=== PATIENT | male | born 1995 | race Caucasian/White ===

== ENCOUNTER → 2024-10-19 09:26 | Outpatient (CLI) | payer OTHER, SELFPAY ==
--- NOTE | ~2024-10-19 | XR_ITS ---
EXAMINATION: XR chest 2V DATE: 10/19/2024 09:54 INDICATION: Tobacco use. TECHNIQUE: Frontal and lateral views of the chest were obtained on 3 radiographs. COMPARISON: Chest 2 views 05/11/2010 FINDINGS: There is no pneumonia, pleural effusion, or pneumothorax. The heart size is normal. IMPRESSION: 1. No acute cardiopulmonary disease. Reviewed, dictated and finalized at location B. IE PADDER
== END ==
LOC: EXPCRAD 09:33
PROVIDERS: PCP Emergency Medicine; Visit Provider Emergency Medicine
DX: Z72.0 Tobacco use (principal)
CPT/HCPCS: 71046

== ENCOUNTER 2025-03-28 15:53 | Emergency (ER) | payer OTHER, SELFPAY ==
--- NOTE | ~2025-03-28 | US_ITS ---
TESTICULAR ULTRASOUND (Doppler ultrasound interrogation techniques used as needed for this exam.) Ordering provider: Xiomara Calderon APRN History: . groin pain . Comparison: None. FINDINGS: TESTICLES: Normal in size. The right measures 4.5x 2.3x 3.1 cm and the left measures 3.9x 2.2x 3.6 cm . Normal echogenicity bilaterally without mass lesion. Normal Doppler flow bilaterally. EPIDIDYMIDES: Normal in size. . Normal echogenicity bilaterally. Both demonstrate normal Doppler flow . HYDROCELE: None. VARICOCELE: None. OTHER ABNORMALITY: None seen. IMPRESSION: normal testicular ultrasound. Reviewed, dictated and finalized at location A.
--- NOTE | ~2025-03-28 | CT_ITS ---
EXAMINATION: CT abdomen pelvis w con DATE: 03/28/2025 17:33 INDICATION: RLQ pain TECHNIQUE: Computed tomography (CT) of the abdomen and pelvis was performed with 100 mL Omnipaque-350 intravenous contrast. Automated exposure control and iterative reconstruction technique were employe d. The dose-length product was 458.39 mGy-cm. COMPARISON: None. FINDINGS: Lower thorax: Unremarkable Liver: Normal. Biliary/Gallbladder: Gallbladder is normal. No bile duct dilation. Pancreas: No mass or duct dilation. Spleen: Normal. Adrenals:No mass. Kidneys: Left upper pole scar. 4 mm left upper pole calcification. Left kidney otherwise normal. Kelsi yed right nephrogram. Mild right hydronephrosis. No suspicious renal masses. Right upper pole hypoden sity, too small to characterize but most likely represents a cyst. GI tract: No small or large bowel dilation. Colonic submucosal fat as can be seen with chronic IBD, o besity, chemotherapy treatment, and celiac disease. Normal appendix. Mesentery/Peritoneum: No ascites, mass, or free air. Retroperitoneum: No mass. Pelvis: 3 mm calcification in the right UVJ. Empty urinary bladder. Intramural bladder wall fat. Soft Tissues: Soft tissues and body wall unremarkable. Bones: No acute osseous finding. IMPRESSION: 3 mm right UVJ calcification causing mild obstructive uropathy Reviewed, dictated and finalized at location K.
--- OUTSIDE RECORDS SUMMARY | 2025-03-28 15:55 | XMS_ITS | Clinical Summary ---
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 Pulse 76 08/07/2012 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 Temperature - - Respiratory Rate - - Oxygen Saturation - - Inhaled Oxygen Concentration - - Weight 66.1 kg (145 lb 12.8 oz) 08/07/2012 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 Height 180.3 cm (5' 11) 08/07/2012 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 Body Mass Index 20.33 08/07/2012 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 Plan of Treatment Health Maintenance Due Date Last Done Comments Annual Physical 1996 Hepatitis C 2011 DTaP, Tdap and Td Vaccines ( 1 - Tdap) 2012 Hepatitis B Vaccines (1 of 3 - 19+ 3-dose series) 2012 COVID-19 Vaccine (2023-2 5 season) 2024 HPV Vaccines Aged Out No longer eligi ble based on patient's age to complete this topic Meningococcal B Vaccine Aged Out No l onger eligible based on patient's age to complete this topic Meningococcal Vaccine Aged Out No shemar saida eligible based on patient's age to complete this topic Pneumococcal Vaccine: Pediat rics (0 to 5 Years) and At-Risk Patients (6 to 49 Years) Aged Out No longer eligible b ased on patient's age to complete this topic RSV Immunizations Under 20 Months Aged Out No longer eligible based on patient's age to complete this topic
--- NOTE | 2025-03-28 16:05 | ECG_ITS ---
Test Date: 2025-03-28 16:58:08 Measurements Intervals [place] Rate: 54 P: 39 NE: 171 QRS: 72 QRSD: 106 T: 58 QT: 421 QTc: 401 Interpretive Statements SINUS BRADYCARDIA ST ELEVATION IN DIFFUSE LEADS- PROBABLY EARLY REPOLARIZATION PEAKED T WAVES- CONSIDER HYPERKALEMIA ABNORMAL ECG No previous ECG available for comparison Electronically Signed On 03-28-2025 20:27:34 CDT by Alex Stein D.O.
--- NOTE | 2025-03-28 16:07 | ED_ITS ---
HPI - Male Genitourinary General Chief complaint: Urogenital-Male Stated complaint: Severe genital pain Time Seen by Provider: 03/28/25 16:00 Focused HPI: Patient is a 29-year-old male who presents to the ER with complaints of severe abdominal pain started about 2 hours ago. He reports ?it feels like my penis hurts. Patient denies any recent fevers, urinary burning or urgency, or back pain. He endorses a history of schizophrenia for which he is well-medicated, per his mother. Patient does endorse difficulty peeing. He denies any new sexual partners or concerns for STDs. GENERAL: Ill-appearing, well-nourished, and in acute distress. Diaphoretic. HEAD: Normocephalic, atraumatic. CHEST: Clear to auscultation. ?No respiratory distress. HEART: Regular rate and rhythm.? NEURO: ?Alert and oriented x3. Patient screened in triage and initial orders placed.? ?Additional care and disposition to be based upon?diagnostic testing and treatment. Related Data Allergies Allergy/AdvReac Type Severity Reaction Status Date / Time No Known Allergies Allergy Verified 11/26/16 23:43 Review of Systems 2 Review of Systems: All systems reviewed & are unremarkable except as noted in HPI and below Exam 2 Narrative: GENERAL: Ill appearing, well-nourished, toxic, in acute distress, diaphoretic HEAD: Normocephalic, atraumatic. NECK: Supple. No adenopathy, no masses. RESPIRATORY: Airway patent, respirations nonlabored. Clear to auscultation bilaterally, no rales, rhonchi, wheezing. CARDIOVASCULAR: Regular rate and rhythm without murmurs, rubs, or gallops. Peripheral pulses 2+ and equal bilaterally. ABDOMINAL: Soft, tender lower abdomen with palpation, mildly distended, no hepatosplenomegaly. Normoactive BS. MUSCULOSKELETAL: Moves all extremities. Strength/ROM intact without gross deformities. SKIN: Warm, diaphoretic, normal color. No rashes. NEURO: A&O X3. Speech clear. Cranial nerves II-XII intact. No ataxic movements. PSYCHIATRIC: Flat affect, but normal interaction. Course Vital Signs Vital signs: Vital Signs Temperature 36.3 C L 03/28/25 16:08 Pulse Rate 69 03/28/25 16:08 Respiratory Rate 18 03/28/25 16:08 Blood Pressure 131/93 H 03/28/25 16:08 Pulse Oximetry 100 03/28/25 16:08 Temperature 36.3 C L 03/28/25 16:10 Pulse Rate 54 L 03/28/25 16:10 Respiratory Rate 18 03/28/25 16:10 Blood Pressure 120/94 H 03/28/25 16:10 Pulse Oximetry 100 03/28/25 16:10 Oxygen Delivery Room Air 03/28/25 16:10 MDM - Male Genitourinary MDM Narrative Medical decision making narrative: Patient is a 29-year-old male who presents to the ER with complaints of severe abdominal pain started about 2 hours ago. He reports ?it feels like my penis hurts. Patient denies any recent fevers, urinary burning or urgency, or back pain. He endorses a history of schizophrenia for which he is well- medicated, per his mother. Patient does endorse difficulty peeing. He denies any new sexual partners or concerns for STDs. Labs Ordered: CBC, CMP, lactic acid, UA, PTT, INR Imaging Ordered: Ultrasound scrotum, CT abdomen pelvis Medications Ordered: 1 L normal saline IV bolus, morphine 4 mg IV Results: Pt's scrotal ultrasound indicates normal testicular ultrasound. Pt's CT scan indicates Left upper pole scar. 4 mm left upper pole calcification. Left kidney otherwise normal. Delayed right nephrogram. Mild right hydronephrosis. No suspicious renal masses. Right upper pole hypodensity, too small to characterize but most likely represents a cyst. Patient's CBC indicates a white blood cell count of 24.2, and platelet count of 430. His lactate was 3.6. Patient's chemistry indicates a chloride of 109, carbon dioxide of 16, anion gap of 15, glucose of 124. His urinalysis does not indicate a UTI. Diagnosis: kidney stone Consults: 1800-spoke with Urology, Dr. Romero, who advised pt receive Toradol. He reports pt can be discharged home to follow up with urology as an outpatient, but if pt is experiencing too much pain then he can be admitted and they will consult on him tomorrow. Patient Education/Shared MDM: Results of lab work and imaging shared with patient and his family. It is likely patient's white blood cell count and lactic acid were both elevated due to patient's distress when he initially arrived in the ER. These values will be redrawn to ensure they are trending down. Patient endorses significant improvement of symptoms following medication administration. He and his family opted for patient to be discharged home with pain medicine. Patient strongly advised to maintain hydration status upon discharge and follow-up with urology as an outpatient. He will be discharged home with a prescription for Flomax, ibuprofen 800, and [place]. Strict return precautions provided. Patient verbalized understanding and is in agreement with plan. Vital signs stable at time of discharge. All questions answered. 1914- Care signed out to Diamond Dawn PA-C pending repeat CBC results. Differential Diagnosis Differential diagnosis: Likely priapism, epididymitis, prostatitis and other (Testicular torsion, appendicitis) Lab Data Attestation: I reviewed the patient's lab results. 03/28/25 16:49 03/28/25 16:49 Labs: Lab Results 03/28/25 03/28/25 03/28/25 Range/Units 16:49 17:39 18:56 WBC 24.2 H Pending (4.5-10.0) K/mm3 RBC 5.09 Pending (4.6-6.20) M/mm3 Hgb 14.6 Pending (14.0-18.0) g/dL Hct 43.3 Pending (42.0-52.0) % MCV 85.1 Pending (80-100) fl MCH 28.7 Pending (26-34) pg MCHC 33.7 Pending (32-36) g/dl RDW 14.3 Pending (11.5-14.5) % Plt Count 430 H Pending (150-375) k/mm3 MPV 9.6 Pending (7.4-10.4) fl Immature Gran % (Auto) Not Reportable Pending Neut % (Auto) Not Reportable Pending Lymph % (Auto) Not Reportable Pending [place] % (Auto) Not Reportable Pending Eos % (Auto) Not Reportable Pending Baso % (Auto) Not Reportable Pending Lymph # (Auto) Not Reportable Pending [place] # (Auto) Not Reportable Pending Eos # (Auto) Not Reportable Pending Baso # (Auto) Not Reportable Pending Abs Immat Gran (auto) Not Reportable Pending Absolute Neuts (auto) Not Reportable Pending Absolute Nucleated RBC Not Reportable Pending Total Counted 100 Neutrophils % (Manual) 87 H (46-73) % Band Neutrophils % 1 (0-6) % Lymphocytes % (Manual) 8.0 L (18-44) % Monocytes % (Manual) 3 (3-9) % Eosinophils % (Manual) 1 (0-4) % Nucleated RBC % Not Reportable Pending Abs Neuts (Manual) 21.29 H (1.3-6.7) K/mm3 Abs Lymphs (Manual) 1.93 (1.1-4.5) K/mm3 Abs Monocytes (Manual) 0.72 (0.1-0.90) K/mm3 Absolute Eos (Manual) 0.24 (0.02-0.50) K/mm3 Platelet Estimate Increased (Adequate) Schistocytes None seen PT 13.7 (11.1-14.7) Seconds INR 1.0 APTT 27.7 (22.3-36.8) Seconds Sodium 140 (137-145) mmol/L Potassium 3.6 (3.4-5.0) mmol/L Chloride 109 H (98-107) mmol/L Carbon Dioxide 16 L (22-30) mmol/L Anion Gap 15 H (4-12) mmol/L BUN 17 (9-20) mg/dL Creatinine 1.08 (0.7-1.3) mg/dL Estim Creat Clear Calc 94 ml/min Estimated GFR > 60 (59 - ) Glucose 124 H (65-110) mg/dL Lactic Acid 3.6 H 1.8 (0.7-2.0) mmol/L Calcium 9.8 (8.4-10.2) mg/dL Total Bilirubin 0.4 (0.2-1.3) mg/dL AST 37 (17-59) U/L ALT 40 (6-50) U/L Alkaline Phosphatase 63 (38-126) U/L C-Reactive Protein 0.9 (<1.0) mg/dL Total Protein 8.1 (6.3-8.2) g/dL Albumin 4.7 (3.5-5.1) g/dL Urine Color Red H (Yellow) Urine Appearance Turbid H (Clear) Urine pH 8.0 (5.0-9.0) Ur Specific [place] 1.010 (1.001-1.035) Urine Protein 1+ H (Negative) mg/dL Urine Glucose (UA) Negative (Negative) mg/dL Urine Ketones 3+ H (Negative) mg/dL Ur Blood (Man) 3+ H (Negative) Urine Nitrate Negative (Negative) Urine Bilirubin 1+ H (Negative) Urine Urobilinogen 0.2 (<2.0) mg/dL Leukocyte Esterase Rfl Negative (Negative) BERENICE/UL Urine RBC >100 H (0-2) /hpf Urine WBC 0-3 (0-3) /hpf Ur Squamous Epith Cells None seen (Few) /hpf Urine Bacteria Rare (None) /hpf Imaging Data Attestation: I personally reviewed and interpreted this imaging study as follows: Radiologist's impression: Impressions Scrotum Ultrasound 03/28/25 16:47 IMPRESSION: normal testicular ultrasound. Abdomen/Pelvis CT 03/28/25 17:43 IMPRESSION: 3 mm right UVJ calcification causing mild obstructive uropathy Discharge Plan Discharge Clinical Impression: Kidney stone on right side, Hematuria Patient Disposition: Home Condition: Stable Instructions: Antibiotic Form, Kidney Stones (ED) Additional Instructions: Please return to the ER with any worsening symptoms, including a fever, inability urinate, or pain uncontrolled by medication. Follow-up with Urology as an outpatient. Take all medications as prescribed, including regularly scheduled medications. You may take ibuprofen and/or [place] for pain relief. Please take the Flomax once a day, as this will help open up your ureters and help you pass the stone. Patient Language: Macedonian Prescriptions: New ibuprofen 800 mg tablet 800 mg PO TID PRN (Reason: pain) Qty: 60 0RF tamsulosin [Flomax] 0.4 mg capsule 0.4 mg PO DAILY Qty: 5 0RF hydrocodone-acetaminophen 5-325 mg tablet 1 tablet PO Q6H PRN (Reason: pain) Qty: 7 0RF Follow-up/Referrals: David Patel MD [Physician] - (urology) Latrell Kim MD [Primary Care Provider] -
[2025-03-28 16:08] VITALS: BP 131/93; PULSE 69; RESP 18; TEMP 36.3; O2SAT 100
[2025-03-28 16:10] VITALS: BP 120/94; PULSE 54; RESP 18; TEMP 36.3; O2SAT 100
--- OUTSIDE RECORDS SUMMARY | 2025-03-28 16:48 | XMS_ITS | Clinical Summary ---
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
[2025-03-28] MEDS: MORPHINE SULFATE (*CRX) 4 MG/ML INJ IV PUSH (16:50)
[2025-03-28 16:53] LABS: Hematocrit 43.3 % (42.0-52.0); Hemoglobin 14.6 g/dL (14.0-18.0); Mean Corpuscular HGB Conc 33.7 g/dl (32-36); Mean Corpuscular Hemoglobin 28.7 pg (26-34); Mean Corpuscular Volume 85.1 fl (80-100); Mean Platelet Volume 9.6 fl (7.4-10.4); Platelet Count Result 430 k/mm3 (150-375); Red Blood Count 5.09 M/mm3 (4.6-6.20); Red Cell Distribution Width 14.3 % (11.5-14.5); White Blood Count 24.2 K/mm3 (4.5-10.0)
[2025-03-28 17:03] LABS: Prothrombin Time 13.7 Seconds (11.1-14.7)
[2025-03-28 17:04] LABS: Partial Thromboplastin Time 27.7 Seconds (22.3-36.8)
[2025-03-28 17:07] LABS: Lactic Acid Reflex 3.6 mmol/L (0.7-2.0)
[2025-03-28] MEDS: SODIUM CHLORIDE 0.9% IV 1,000 ML 999 ML IV CONT ×2 (17:07→18:43)
[2025-03-28 17:09] LABS: Alanine Aminotransferase 40 U/L (6-50); Albumin Level 4.7 g/dL (3.5-5.1); Alkaline Phosphatase 63 U/L (38-126); Anion Gap 15 mmol/L (4-12); Aspartate Amino Transferase 37 U/L (17-59); Bilirubin,Total 0.4 mg/dL (0.2-1.3); Blood Urea Nitrogen 17 mg/dL (9-20); CRP. 0.9 mg/dL (<1.0); Calcium 9.8 mg/dL (8.4-10.2); Carbon Dioxide 16 mmol/L (22-30); Chloride 109 mmol/L (98-107); Estimated CRCL calculation 94 ml/min; Estimated Glomerular Filt Rate > 60; Glucose 124 mg/dL (65-110); Potassium 3.6 mmol/L (3.4-5.0); Sodium 140 mmol/L (137-145); Total Protein 8.1 g/dL (6.3-8.2)
[2025-03-28 17:16] LABS: Band Neutrophils Percent 1 % (0-6); Eosinophils Absolute Manual 0.24 K/mm3 (0.02-0.50); Eosinophils Percent Manual 1 % (0-4); Lymphocytes Absolute Manual 1.93 K/mm3 (1.1-4.5); Monocytes Absolute Manual 0.72 K/mm3 (0.1-0.90); Monocytes Percent Manual 3 % (3-9); Neutrophils Absolute Manual 21.29 K/mm3 (1.3-6.7); Neutrophils Percent Manual 87 % (46-73); Platelet Estimate Increased (Adequate); Total Cells Counted 100
[2025-03-28 17:17] LABS: Schistocytes None Seen
[2025-03-28] MEDS: HYDROmorphone HCL INJ (*CRX) 2 MG/ML VIAL 0.5 MG IV PUSH (17:49)
[2025-03-28 18:10] LABS: Appearance Urine Turbid (Clear)
[2025-03-28 18:11] LABS: Blood Urine 3+ (Negative); Glucose Urine UA Negative (Negative); Ketones Urine 3+ mg/dL (Negative); Nitrate Urine Negative (Negative); Protein Urine 1+ mg/dL (Negative)
[2025-03-28 18:12] LABS: Add Urine Microscopic? YES; Bilirubin Urine 1+ (Negative); Leukocyte Esterase Ur Negative LEU/UL (Negative); RBC Urine >100 /hpf (0-2); Urobilinogen Urine 0.2 mg/dL (<2.0); WBC Urine 0-3 /hpf (0-3)
[2025-03-28 18:14] LABS: Bacteria Urine Rare /hpf; Squamous Epithelial Cell Urine None seen /hpf (Few)
[2025-03-28 18:15] LABS: Color Urine Red (Yellow)
[2025-03-28] MEDS: TAMSULOSIN HCL 0.4 MG CAPSULE PO (18:44)
[2025-03-28] MEDS: KETOROLAC 30 MG/ML VIAL (*BKC) IV PUSH (18:44)
[2025-03-28 18:52] LABS: Reflex Lactic Acid Yes or No Add Lactic
[2025-03-28 19:01] LABS: Hematocrit 40.4 % (42.0-52.0); Hemoglobin 13.5 g/dL (14.0-18.0); Mean Corpuscular HGB Conc 33.4 g/dl (32-36); Mean Corpuscular Hemoglobin 29.1 pg (26-34); Mean Corpuscular Volume 87.1 fl (80-100); Mean Platelet Volume 9.7 fl (7.4-10.4); Platelet Count Result 362 k/mm3 (150-375); Red Blood Count 4.64 M/mm3 (4.6-6.20); Red Cell Distribution Width 14.5 % (11.5-14.5); White Blood Count 20.4 K/mm3 (4.5-10.0)
[2025-03-28 19:14] LABS: Lactic Acid Reflex 1.8 mmol/L (0.7-2.0)
[2025-03-28 19:45] LABS: Band Neutrophils Percent 1 % (0-6); Lymphocytes Absolute Manual 1.42 K/mm3 (1.1-4.5); Monocytes Absolute Manual 1.22 K/mm3 (0.1-0.90); Monocytes Percent Manual 6 % (3-9); Neutrophils Absolute Manual 17.74 K/mm3 (1.3-6.7); Neutrophils Percent Manual 86 % (46-73); Total Cells Counted 100
[2025-03-28 19:46] LABS: Platelet Estimate Adequate (Adequate); Schistocytes None Seen
== END 2025-03-28 20:06 | disposition home or self-care (01) ==
PROVIDERS: Emergency Provider Registered Nurse; PCP Emergency Medicine
DX: N20.0 Calculus of kidney (principal); R31.9 Hematuria, unspecified; R00.1 Bradycardia, unspecified
CPT/HCPCS: 36415; 74177; 76870; 80053; 81001; 83605; 85025; 85610; 85730; 86140; 93005; 93976; 96361; 96374; 96375; 99284; A9270; J1171; J1885; J2270; J7030; Q9967